=== PATIENT | male | born 1960 | race Hispanic/Latino ===

== ENCOUNTER → 2023-07-21 | Outpatient (CLI) | payer BC | END | disposition home or self-care (01) | LOC: RAH 15:02 | PROVIDERS: ATTEND Nurse Practitioner Family | DX: M54.6 Pain in thoracic spine (principal) | CPT/HCPCS: 72146 ==

== ENCOUNTER → 2024-03-09 | Outpatient (CLI) | payer BC ==
--- NOTE | 2024-03-09 11:05 | HMCIMG ---
US ARTERIAL BILAT LOW EXT DUPL REASON: MONONEUROPATHY OF BLE COMPARISON: None TECHNIQUE: Bilateral lower extremity arterial Doppler evaluation was performed with spectral analysis and color flow imaging. FINDINGS: Left leg shows normal triphasic waveforms common femoral artery through the popliteal artery. Anterior tibial and dorsalis pedis arteries are triphasic, posterior tibial is biphasic. There is no significant velocity reduction. There are similar findings on the left, triphasic through the popliteal as well as anterior tibial and dorsalis pedis, biphasic posterior tibial. There is no significant velocity reduction. IMPRESSION: 1. No evidence of arterial inflow occlusion in either lower extremity.
--- NOTE | 2024-03-09 11:05 | HMCIMG ---
US VENOUS DOPPLER BILATERAL REASON: MONONEUROPATHY OF BLE COMPARISON: None Technique: Bilateral venous doppler ultrasound was performed with spectral analysis and color flow imaging technique. FINDINGS: There is a normal appearance of the common femoral, deep femoral, the profunda femoris and popliteal veins. Proximal calf veins appear normal as well. There is normal response to compression and augmentation. There is no evidence of deep venous thrombosis. IMPRESSION: Normal bilateral lower extremity venous Doppler ultrasound.
== END | disposition home or self-care (01) ==
LOC: RAH 09:59
PROVIDERS: ATTEND Nurse Practitioner Family
DX: G57.93 Unspecified mononeuropathy of bilateral lower limbs (principal)
CPT/HCPCS: 93925; 93970

== ENCOUNTER → 2024-06-13 | Outpatient (CLI) | payer BC ==
[~2024-06-13] MED LIST: GADOTERATE MEGLUMINE 10 MMOL/20 ML VIAL IV ONE
--- NOTE | 2024-06-13 16:51 | HMCIMG ---
MR SPINAL CANAL, CERV W/WO CON HISTORY: Pain COMPARISON: None TECHNIQUE: MRI of the cervical spine was performed utilizing multiple pulse sequences in axial, coronal and sagittal plane. Patient was given 15 cc of Clariscan through intravenous route. FINDINGS: No abnormal signal intensity is seen of the visualized bony structure. No loss of vertebral height is seen. There is reversal of normal lordotic cervical curvature which may be related to muscle spasm or positioning. Degenerative disc signals are present at all cervical spine levels. Cerebellar tonsils are in normal position. The cervical cord is of normal signal intensity without cord compression or impingement. At the C3-4 level, there is spondylotic disc causing anterior CSF space effacement with bilateral lateral recess stenosis and bilateral neural foraminal stenosis. The central canal measures approximately 1.6 mm in its anterior posterior dimension. At the C4-5 level, there is spondylotic disc causing anterior CSF space effacement with bilateral lateral recess stenosis and bilateral neural foraminal stenosis. The central canal measures approximately 6.1 mm in its anterior posterior dimension. At the C5-6 level, there is spondylotic disc causing anterior CSF space effacement with bilateral lateral recess stenosis and bilateral neural foraminal stenosis. The central canal measures approximately 7.9 mm in its anterior posterior dimension. At the C6-7 level, there is spondylotic disc causing anterior CSF space effacement with bilateral lateral recess stenosis and bilateral neural foraminal stenosis. The central canal measures approximately 6.6 mm in its anterior posterior dimension. IMPRESSION: 1. DJD of the cervical spine spondylosis and central canal narrowing predominantly at C3-4 through C6-7 levels as described above.
== END | disposition home or self-care (01) ==
LOC: RAH 13:39
PROVIDERS: ATTEND Student in an Organized Health Care Education/Training Program
DX: M47.22 Other spondylosis with radiculopathy, cervical region (principal); M48.02 Spinal stenosis, cervical region; M43.8X2 Other specified deforming dorsopathies, cervical region; M50.10 Cervical disc disorder with radiculopathy, unspecified cervical region
CPT/HCPCS: 72156; A9575

== ENCOUNTER → 2024-08-31 | Outpatient (CLI) | payer BC ==
--- NOTE | 2024-08-31 23:01 | HMCIMG ---
SCOLIOSIS 2-3VW REASON: SCOLIOSIS, UNSPEC. COMPARISON: None TECHNIQUE: Scoliosis series was obtained. FINDINGS: There is dextroscoliosis of thoracic spine with scoliotic angle of 8 degrees. There is levoscoliosis of the lumbar spine with scoliotic angle of 8.5 degrees. No loss of vertebral height is seen. IMPRESSION: Mild scoliosis.
== END | disposition home or self-care (01) ==
LOC: RAH 09:42
PROVIDERS: ATTEND Physical Medicine & Rehabilitation
DX: M41.84 Other forms of scoliosis, thoracic region (principal); M41.86 Other forms of scoliosis, lumbar region
CPT/HCPCS: 72082